=== PATIENT | male | born 1995 | race Hispanic/Latino ===

== ENCOUNTER 2018-03-18 18:51 | Inpatient (IN) | payer OTHER ==
[~2018-03-18] VITALS: Ht 162.6 cm; Wt 74.8 kg
[2018-03-18 19:30] LABS: BASOPHILS % (AUTO) 0.4 % (0.0-5.0); EOSINOPHILS % (AUTO) 9.5 % (0.0-8.0); HEMATOCRIT 42.7 % (42-54); MEAN CORPUSCULAR HEMOGLOBIN 33.7 pg (27.0-33.0); MEAN CORPUSCULAR HGB CONC 33.9 g/dL (32.0-36.0); MEAN CORPUSCULAR VOLUME 99.5 fL (80-100); MONOCYTES % (AUTO) 8.8 % (3.0-13.0); NEUTROPHILS % (AUTO) 65.3 % (40.0-77.0); NUCLEATED RED BLOOD CELLS 0.1 % (0.0-0.19); PLATELET COUNT (AUTO) 205 K/uL (130-400); RED BLOOD CELL COUNT(AUTO) 4.29 MIL/uL (4.50-6.20); RED CELL DISTRIBUTION WIDTH 12.8 % (11.0-15.5); WHITE BLOOD COUNT (AUTO) 10.1 K/uL (4.8-10.8)
[2018-03-18 19:50] LABS: CARBON DIOXIDE 27 mmol/L (21-32); CHLORIDE 105 mmol/L (101-111); CREATININE 1.2 mg/dL (0.5-1.5); GLOMERULAR FILTR. RATE CALC 81 mL/min (>60); GLUCOSE,RANDOM 56 mg/dL (70-105); SODIUM SERUM 142 mmol/L (136-145); UREA NITROGEN, BLOOD 15 mg/dL (7-18)
[2018-03-18 20:03] LABS: ALANINE AMINOTRANSFERASE 49 U/L (12-78); ALBUMIN 3.6 g/dL (3.5-5.0); ALCOHOL, BLOOD < 3 mg/dL (0-10); ASPARTATE AMINOTRANSFERASE 51 U/L (10-37); BILIRUBIN,TOTAL 0.2 mg/dL (0.2-1.0); TOTAL PROTEIN, SERUM 6.8 g/dL (6.0-8.3)
[2018-03-18 20:04] LABS: ACETAMINOPHEN < 1 mcg/mL (10-29); CREATINE KINASE, TOTAL 824 U/L (21-232); SALICYLATE < 2.8 mg/dL (2.8-20.0)
[2018-03-18 20:14] LABS: APPEARANCE,URINE SLIGHTLY CLOUDY (CLEAR); BILIRUBIN,URINE Negative (NEGATIVE); COLOR,URINE Yellow (YELLOW); GLUCOSE, URINE (UA) Negative (NEGATIVE); KETONES,URINE Trace mg/dL (NEGATIVE); LEUKOCYTE ESTERASE ,URINE Negative (NEGATIVE); NITRATE,URINE Negative (NEGATIVE); OCCULT BLOOD,URINE Negative (NEGATIVE); PH,URINE 5.5 (5.0-8.0); PROTEIN,URINE Trace (NEGATIVE)
[2018-03-18 20:20] LABS: RBC,URINE 0-1 /HPF (0-1); WBC,URINE 0-1 /HPF (0-1)
[2018-03-18 20:21] LABS: AMORPHOUS SEDIMENT,UR Rare /LPF (None Seen); AMPHET/METH SCREEN,URINE NEGATIVE (NEGATIVE); BACTERIA,URINE Few /HPF (None Seen); BARBITURATE SCREEN, URINE NEGATIVE (NEGATIVE); BENZODIAZEPINES SCREEN,URINE POSITIVE (NEGATIVE); CANNABINOID SCREEN,URINE NEGATIVE (NEGATIVE); COCAINE SCREEN,URINE POSITIVE (NEGATIVE); MUCUS,URINE Few LPF (None Seen); OPIATE SCREEN,URINE NEGATIVE (NEGATIVE); PHENCYCLIDINE SCREEN,URINE NEGATIVE (NEGATIVE); SQUAMOUS EPITHELIAL CELL,UR Few /HPF (0-2)
[2018-03-18] MEDS ORDERED: SODIUM CHLORIDE 0.9% 1000ML 1,000 ML IV ONE (23:25)
[2018-03-19] MEDS: SODIUM CHLORIDE 0.9% 1000ML 1,000 ML IV SCH ×3 (04:56→21:12)
[2018-03-19] MEDS ORDERED: ACETAMINOPHEN 325 MG TAB PO PRN (05:00)
[2018-03-19] MEDS ORDERED: ONDANSETRON HCL 4 MG/2 ML VIAL IV PRN (05:00)
[2018-03-19 05:25] VITALS: BP 99/46
[2018-03-19 08:11] VITALS: BP 118/68
[2018-03-19] MEDS: FAMOTIDINE/PF 20 MG/2 ML VIAL IV SCH (12:03)
[2018-03-19 12:09] VITALS: BP 104/41
[2018-03-19] MEDS ORDERED: BENZOTROPINE PO (15:21)
[2018-03-19] MEDS ORDERED: SERT25TA5 PO (15:21)
[2018-03-19] MEDS ORDERED: QUET100T PO (15:21)
[2018-03-19] MEDS ORDERED: DIVA500T69 PO ×2 (15:21)
[2018-03-19] MEDS ORDERED: ARIP675S IM (15:21)
[2018-03-19 15:45] VITALS: BP 111/56
--- NOTE | 2018-03-19 16:00 | NUR ---
DCP ATTEMPTED TO DO IA, PATIENT SLEEPING, CONSTABLE IN ROOM, WILL F/U
[2018-03-19 20:00] VITALS: BP 111/65
[2018-03-20] VITALS: BP 126/68
--- NOTE | 2018-03-20 01:27 | NUR ---
ROUNDS Patient has been very pleasant through the night, no episodes of anxiety or confusion, guardian is at the room with him, will continue to monitor.
[2018-03-20 04:00] VITALS: BP 123/71
[2018-03-20] MEDS: SODIUM CHLORIDE 0.9% 1000ML 1,000 ML IV SCH ×2 (04:26→09:43)
[2018-03-20 04:31] LABS: HEMATOCRIT 39.2 % (42-54); MEAN CORPUSCULAR HEMOGLOBIN 34.3 pg (27.0-33.0); MEAN CORPUSCULAR HGB CONC 34.5 g/dL (32.0-36.0); MEAN CORPUSCULAR VOLUME 99.4 fL (80-100); PLATELET COUNT (AUTO) 176 K/uL (130-400); RED BLOOD CELL COUNT(AUTO) 3.94 MIL/uL (4.50-6.20); RED CELL DISTRIBUTION WIDTH 12.6 % (11.0-15.5)
[2018-03-20 05:09] LABS: POTASSIUM 3.4 mmol/L (3.5-5.1)
[2018-03-20 08:19] VITALS: BP 129/74
[2018-03-20] MEDS ORDERED: SODIUM CHLORIDE 0.9% 1000ML 1,000 ML IV SCH (09:32)
[2018-03-20] MEDS: FAMOTIDINE/PF 20 MG/2 ML VIAL IV SCH (09:43)
[2018-03-20 12:19] VITALS: BP 120/66
[2018-03-20 16:00] VITALS: BP 124/68
[2018-03-20 20:00] VITALS: BP 132/79
[2018-03-20] MEDS ORDERED: DIVALPROEX SODIUM 250 MG TABLET.DR PO SCH (21:00)
[2018-03-20] MEDS ORDERED: QUETIAPINE FUMARATE 100 MG TAB PO SCH (21:00)
[2018-03-20] MEDS: BENZTROPINE MESYLATE 0.5 MG TAB PO SCH (21:46)
[2018-03-21] VITALS: BP 122/70
[2018-03-21 04:00] VITALS: BP 109/68
[2018-03-21 05:13] LABS: HEMATOCRIT 39.5 % (42-54); MEAN CORPUSCULAR HEMOGLOBIN 33.9 pg (27.0-33.0); MEAN CORPUSCULAR HGB CONC 34.4 g/dL (32.0-36.0); MEAN CORPUSCULAR VOLUME 98.4 fL (80-100); NUCLEATED RED BLOOD CELLS 0.1 % (0.0-0.19); PLATELET COUNT (AUTO) 137 K/uL (130-400); RED BLOOD CELL COUNT(AUTO) 4.01 MIL/uL (4.50-6.20); RED CELL DISTRIBUTION WIDTH 12.8 % (11.0-15.5)
[2018-03-21 05:35] LABS: CREATININE 0.8 mg/dL (0.5-1.5); POTASSIUM 3.5 mmol/L (3.5-5.1)
[2018-03-21 08:12] VITALS: BP 121/62
[2018-03-21] MEDS ORDERED: ENOXAPARIN SODIUM 40 MG/0.4 ML SYRINGE SQ SCH (09:00)
[2018-03-21] MEDS ORDERED: DIVALPROEX SODIUM 250 MG TABLET.DR PO SCH (09:00)
[2018-03-21] MEDS ORDERED: SERTRALINE HCL 50 MG TABLET PO SCH (09:00)
[2018-03-21] MEDS: BENZTROPINE MESYLATE 0.5 MG TAB PO SCH ×2 (09:28→15:10)
[2018-03-21] MEDS: FAMOTIDINE/PF 20 MG/2 ML VIAL IV SCH (09:29)
[2018-03-21] MEDS: SODIUM CHLORIDE 0.9% 1000ML 1,000 ML IV SCH ×3 (09:30→16:49)
--- NOTE | 2018-03-21 11:01 | NUR ---
[facility] [place]- RE SCREEN ADIVSED BY PRIMARY RN THAT WE HAVE A NOT THAT SAYS MEDICALLY CLEARED FOR DISCHARGE. [facility] CRISIS LINE NUMBER [phone] GIVEN TO PRIMARY NURSE TO CALL FOR RE-SCREENING
[2018-03-21 12:07] VITALS: BP 110/62
--- NOTE | 2018-03-21 12:43 | NUR ---
SCREENING PENDING CALL MADE TO [facility]- ASKING FOR A RE-SCREEN. 1:1 AT BEDSIDE, NEW LUNCH TRAY ORDERED- PATIENT DOES MAKE EYE CONTACT, RESPONDS APPROPRIATELY . PENDING RE SCREEN FOR DISCHARGE OR TRANSFER.
--- NOTE | 2018-03-21 13:00 | NUR ---
Patient awake, alert, oriented x 3. Ambulating well on his own. Denies discomfort. Did not like the burger served for lunch so went ahead and ordered him a chopped beef steak and he ate it. As per case-regional service manager since law enforcement completed their 48hr monitoring and left and there is documentation from a physician about patient being suicidal with law enforcement, we need to continue suicidal watch. Not voicing being suicidal at this time.
--- NOTE | 2018-03-21 13:38 | NUR ---
Screener from [facility] to screen patient.
[2018-03-21 16:56] VITALS: BP 127/68
== END 2018-03-21 19:00 | disposition home or self-care (01) | DRG 558 ==
LOC: EDH 18:51 → EDHIP 18:52 → OBSVTOIN 18:52 → 4CH 03-19 05:50
PROVIDERS: ADMIT Internal Medicine; ATTEND Internal Medicine
DX: M62.82 Rhabdomyolysis (principal); F20.9 Schizophrenia, unspecified; F31.9 Bipolar disorder, unspecified
CPT/HCPCS: 36415; 80048; 80053; 80305; 81001; 82550; 85025; 85027; 93005; G0378; G0480; G0481; J1650; J3490; J7030

== ENCOUNTER 2018-06-03 17:40 | Emergency (ER) | payer OTHER ==
[~2018-06-03 17:40] MED LIST: ARIP675S IM; BENZOTROPINE PO; DIVA500T69 PO; QUET100T PO; SERT25TA5 PO
[2018-06-03 19:19] LABS: BILIRUBIN,URINE Negative (NEGATIVE); COLOR,URINE Yellow (YELLOW); GLUCOSE, URINE (UA) Negative (NEGATIVE); KETONES,URINE 15 mg/dL (NEGATIVE); LEUKOCYTE ESTERASE ,URINE Negative (NEGATIVE); NITRATE,URINE Negative (NEGATIVE); OCCULT BLOOD,URINE Negative (NEGATIVE); PH,URINE 6.5 (5.0-8.0); PROTEIN,URINE Negative (NEGATIVE)
[2018-06-03 19:20] LABS: APPEARANCE,URINE Clear (CLEAR)
[2018-06-03] MEDS ORDERED: CYCLOBENZAPRINE HCL 10 MG TABLET ONE (19:22)
== END 2018-06-03 21:16 | disposition home or self-care (01) ==
LOC: EDH 17:40
DX: M54.5 Low back pain (principal); Z79.899 Other long term (current) drug therapy; Z72.0 Tobacco use
CPT/HCPCS: 72100; 81003